=== PATIENT | female | born 1965 | race Hispanic/Latino ===

== ENCOUNTER → 2021-11-02 | Outpatient (CLI) | payer OTHER | LOC: US 07:57 | PROVIDERS: ATTEND Internal Medicine Hematology & Oncology | DX: Z12.31 Encounter for screening mammogram for malignant neoplasm of breast (principal); E88.2 Lipomatosis, not elsewhere classified; D45 Polycythemia vera; I10 Essential (primary) hypertension; D47.1 Chronic myeloproliferative disease; C91.12 Chronic lymphocytic leukemia of B-cell type in relapse; D72.0 Genetic anomalies of leukocytes; D64.9 Anemia, unspecified; R10.84 Generalized abdominal pain; E78.5 Hyperlipidemia, unspecified | CPT/HCPCS: 76700; 77067 ==

== ENCOUNTER → 2022-02-06 | Outpatient (CLI) | payer OTHER ==
[~2022-02-06] MED LIST: IOPAMIDOL 370 MG/ML 200 ML INFUS..BTL INJ ONE; SODIUM CHLORIDE 0.9% 50ML 50 ML ONE
[2022-02-06 09:26] LABS: CREATININE, SERUM 0.75 mg/dL (0.57-1.11)
== END ==
LOC: CT 08:27
PROVIDERS: ATTEND Internal Medicine Hematology & Oncology
DX: R10.84 Generalized abdominal pain (principal); E78.5 Hyperlipidemia, unspecified; I10 Essential (primary) hypertension; D47.1 Chronic myeloproliferative disease; C91.12 Chronic lymphocytic leukemia of B-cell type in relapse; D72.0 Genetic anomalies of leukocytes; D64.9 Anemia, unspecified
CPT/HCPCS: 36415; 74177; 82565; 84520; Q9967